=== PATIENT | female | born 1980 | race Caucasian/White ===

== ENCOUNTER 2021-01-22 19:09 | Inpatient (IN) | payer OTHER, SELFPAY ==
[2021-01-22 19:16] VITALS: BP 113/66; PULSE 108; RESP 18; TEMP 37.2; O2SAT 96; BMI 26.2
[2021-01-22 20:19] LABS: COVID-19 Test Negative (Negative)
[2021-01-22 20:45] LABS: MANUAL DIFF FLAG NO
[2021-01-22 20:48] LABS: Basophils Percent Auto 0.5 % (0-2); Eosinophils Absolute Auto 0.1 X10*3/uL (0.0-0.4); Eosinophils Percent Auto 1.3 % (0-4); Hematocrit 37.2 % (37.0-47.0); Hemoglobin 12.4 g/dl (12.0-16.0); Imm Gran Abs Auto 0.01 X10*3/uL (0.00-0.03); Imm Gran Pct Auto 0.2 % (0.0-0.4); Lymphocytes Absolute Auto 2.1 X10*3/uL (1.2-4.9); Lymphocytes Percent Auto 33.1 % (20-40); Mean Corpuscular HGB Conc 33.3 g/dl (31.0-35.0); Mean Corpuscular Hemoglobin 32.2 pg (27.0-33.0); Mean Corpuscular Volume 96.6 fL (80.0-98.0); Mean Platelet Volume 9.2 fL (9.4-12.3); Monocytes Absolute Auto 0.4 X10*3/uL (0.1-1.2); Monocytes Percent Auto 5.7 % (2-11); Neutrophils Absolute Auto 3.7 x10*3/uL (2.0-8.3); Neutrophils Percent Auto 59.2 % (45-73); Platelet Count 267 X10*3/uL (160-400); Red Blood Count 3.85 X10*6/uL (4.20-5.50); Red Cell Distribution Width 12.8 % (11.0-16.0); White Blood Count 6.3 X10*3/uL (4.8-10.8)
[2021-01-22 21:01] LABS: Anion Gap 12 (12-20); Blood Urea Nitrogen 19 mg/dL (9-16); Calcium 8.9 mg/dL (8.4-10.2); Carbon Dioxide 24 mmol/L (22-29); Chloride 108 mmol/L (96-108); Creatinine Clr Calc Pharmacy 74.7; Estimated Glomerular Filt Rate > 60; Glucose Random 95 mg/dL (60-115); Potassium 3.8 mmol/L (3.3-5.1); Sodium 140 mmol/L (135-145)
--- NOTE | 2021-01-22 22:01 | ED_ITS ---
HPI - Psych General Chief Complaint: Psychiatric Symptoms Stated Complaint: crisis Time Seen by Provider: 01/22/21 22:01 Source: RN notes reviewed Mode of arrival: EMS History of Present Illness HPI Narrative: patient comes from halfway and got into an argument. Patient made homicidal statements so [facility] sectioned her. According to halfway patient has been increasing agitation over the past few weeks. MD complaint: anxiety Onset (ago): hour(s) Duration: constant Related Data Home Medications Medication Instructions Recorded Confirmed citalopram 40 mg tablet 1 tab PO QAM 01/22/21 01/22/21 clonazepam 0.5 mg tablet 1 tab PO BID 01/22/21 01/22/21 medroxyprogesterone 5 mg tablet 1 tab PO DAILY 01/22/21 01/22/21 quetiapine 200 mg tablet,extended 200 mg PO BEDTIME 01/22/21 01/22/21 release 24 hr quetiapine 50 mg tablet 1 tab PO QAM 01/22/21 01/22/21 Allergies Allergy/AdvReac Type Severity Reaction Status Date / Time No Known Allergies Allergy Unverified 11/22/19 17:12 [No Known Allergies*] Review of Systems Review of Systems: Yes Unobtainable due to mental status and Other (patient appears developmentally delayed) Neurologic: Denies Sensory deficit (Neuro) [facility] Social History Social History Advance Directives: No Advance Directives Information Provided: No Patient : No Physical Exam Vital Signs: Vital Signs: Last Vital Signs Temp 98.9 F 01/22/21 19:16 Pulse 108 H 01/22/21 19:16 Resp 18 01/22/21 19:16 BP 113/66 01/22/21 19:16 Pulse Ox 96 01/22/21 19:16 Body Mass Index 26.2 Const: Other: Patient appears developmentally delayed, shy, anxious holding a stuffed animal Nutritional Appearance: average body habitus Orientation/consciousness: oriented to person Limitations: behavioral limitations HENMT: Head: Yes normal to inspection Ears: external ears normal General nose exam: Normal external nose present Mouth: Normal oral and palatal mucosa present and oropharynx normal Throat: Yes posterior oropharynx normal Eyes: General: appearance normal, both eyes and all related structures Neck: Other: supple Neck: Yes normal visual inspection Chest: Chest palpation & inspection: normal inspection of the chest Resp: Auscultation: clear to auscultation bilaterally Cardio: Jugular venous distension: no JVD Rate: regular rate Rhythm: regular rhythm Heart sounds: S1 normal heart sound present and S2 normal heart sound present GI: Inspection: Yes normal to inspection Palpation (GI): Soft to palpation, nontender and No hepatosplenomegaly present Auscultation: normal bowel sounds : General: Yes no CVA tenderness Back/Spine/Pelvis: Back: no CVA tenderness Skin: General skin exam: no rashes or lesions noted Neuro: General: oriented to person Cranial nerves: Yes CN's II-XII intact bilaterally Motor exam (neuro): 5/5 motor strength present throughout Sensory Exam: No Sensory deficit (Neuro) Extrem: General: Yes normal to inspection Psych: Appearance: grossly normal Course Reevaluation(s) Reevaluation #1: Crisis decided to admit Time: 22:55 [facility] - Psych Lab Data Result diagrams: 01/22/21 20:38 01/22/21 20:38 Labs: Lab Results 01/22/21 01/22/21 01/22/21 Range/Units 19:59 20:38 20:38 WBC 6.3 (4.8-10.8) X10*3/uL RBC 3.85 L (4.20-5.50) X10*6/uL Hgb 12.4 (12.0-16.0) g/dl Hct 37.2 (37.0-47.0) % MCV 96.6 (80.0-98.0) fL MCH 32.2 (27.0-33.0) pg MCHC 33.3 (31.0-35.0) g/dl RDW 12.8 (11.0-16.0) % Plt Count 267 (160-400) X10*3/uL MPV 9.2 L (9.4-12.3) fL Immature Gran % (Auto) 0.2 (0.0-0.4) % Neut % (Auto) 59.2 (45-73) % Lymph % (Auto) 33.1 (20-40) % [place] % (Auto) 5.7 (2-11) % Eos % (Auto) 1.3 (0-4) % Baso % (Auto) 0.5 (0-2) % Lymph # (Auto) 2.1 (1.2-4.9) X10*3/uL [place] # (Auto) 0.4 (0.1-1.2) X10*3/uL Eos # (Auto) 0.1 (0.0-0.4) X10*3/uL Baso # (Auto) 0.0 (0.0-0.2) X10*3/uL Abs Immat Gran (auto) 0.01 (0.00-0.03) X10*3/uL Absolute Neuts (auto) 3.7 (2.0-8.3) x10*3/uL Absolute Nucleated RBC 0.000 (0.0-0.012) X10*3/uL Nucleated RBC % (auto) 0.0 (0.0-0.2) /100WBC Sodium 140 (135-145) mmol/L Potassium 3.8 (3.3-5.1) mmol/L Chloride 108 (96-108) mmol/L Carbon Dioxide 24 (22-29) mmol/L Anion Gap 12 (12-20) BUN 19 H (9-16) mg/dL Creatinine 0.84 (0.5-1.4) mg/dL Estim Creat Clear Calc 74.7 Estimated GFR > 60 Random Glucose 95 (60-115) mg/dL Calcium 8.9 (8.4-10.2) mg/dL Urine Color Urine Appearance Urine pH (5.0-8.0) Ur Specific [place] (1.005-1.025) Urine Protein (NEG-TRACE) MG/DL Urine Glucose (UA) (NEG) MG/DL Urine Ketones (NEG) MG/DL Urine Blood (NEG) Urine Nitrite (NEG) Ur Leukocyte Esterase (NEG) Urine RBC (0) /HPF Urine WBC (0-4) /HPF Ur Squamous Epith Cells /LPF Urine Bacteria /LPF Urine Mucus /LPF Urine Test (NEGATIVE) Urine Opiates Screen (Not Detect) Urine Fentanyl Screen (Not Detect) Ur Barbiturates Screen (Not Detect) Ur Phencyclidine Scrn (Not Detect) Ur Amphetamines Screen (Not Detect) U Benzodiazepines Scrn (Not Detect) Urine Cocaine Screen (Not Detect) U Marijuana (THC) Screen (Not Detect) COVID-19 (JONATHAN) Negative (Negative) COVID-19 Clin Com See Note 01/22/21 01/22/2121 Range/Units 22:01 22:01 22:01 WBC (4.8-10.8) X10*3/uL RBC (4.20-5.50) X10*6/uL Hgb (12.0-16.0) g/dl Hct (37.0-47.0) % MCV (80.0-98.0) fL MCH (27.0-33.0) pg MCHC (31.0-35.0) g/dl RDW (11.0-16.0) % Plt Count (160-400) X10*3/uL MPV (9.4-12.3) fL Immature Gran % (Auto) (0.0-0.4) % Neut % (Auto) (45-73) % Lymph % (Auto) (20-40) % [place] % (Auto) (2-11) % Eos % (Auto) (0-4) % Baso % (Auto) (0-2) % Lymph # (Auto) (1.2-4.9) X10*3/uL [place] # (Auto) (0.1-1.2) X10*3/uL Eos # (Auto) (0.0-0.4) X10*3/uL Baso # (Auto) (0.0-0.2) X10*3/uL Abs Immat Gran (auto) (0.00-0.03) X10*3/uL Absolute Neuts (auto) (2.0-8.3) x10*3/uL Absolute Nucleated RBC (0.0-0.012) X10*3/uL Nucleated RBC % (auto) (0.0-0.2) /100WBC Sodium (135-145) mmol/L Potassium (3.3-5.1) mmol/L Chloride (96-108) mmol/L Carbon Dioxide (22-29) mmol/L Anion Gap (12-20) BUN (9-16) mg/dL Creatinine (0.5-1.4) mg/dL Estim Creat Clear Calc Estimated GFR Random Glucose (60-115) mg/dL Calcium (8.4-10.2) mg/dL Urine Color YELLOW Urine Appearance CLEAR Urine pH 6.0 (5.0-8.0) Ur Specific [place] >= 1.030 H (1.005-1.025) Urine Protein TRACE (NEG-TRACE) MG/DL Urine Glucose (UA) NEG (NEG) MG/DL Urine Ketones 5 (NEG) MG/DL Urine Blood TRACE (NEG) Urine Nitrite NEG (NEG) Ur Leukocyte Esterase TRACE H (NEG) Urine RBC 0-2 (0) /HPF Urine WBC 1-4 (0-4) /HPF Ur Squamous Epith Cells 3+ /LPF Urine Bacteria TRACE /LPF Urine Mucus 3+ /LPF Urine Test NEGATIVE (NEGATIVE) Urine Opiates Screen Not Detected (Not Detect) Urine Fentanyl Screen Not Detected (Not Detect) Ur Barbiturates Screen Not Detected (Not Detect) Ur Phencyclidine Scrn Not Detected (Not Detect) Ur Amphetamines Screen Not Detected (Not Detect) U Benzodiazepines Scrn POSITIVE H (Not Detect) Urine Cocaine Screen Not Detected (Not Detect) U Marijuana (THC) Screen Not Detected (Not Detect) COVID-19 (JONATHAN) (Negative) COVID-19 Clin Com Discharge Plan Discharge Clinical Impression: Acute anxiety, Agitation Patient Disposition: Admitted As Inpatient
[2021-01-22 22:11] LABS: Appearance Urine CLEAR; Color Urine YELLOW; Glucose Urine UA NEG (NEG); Leukocyte Esterase Urine TRACE (NEG); Nitrite Urine NEG (NEG); Specific Gravity - Urine >= 1.030 (1.005-1.025); UACC Culture Trigger YES; Urine Blood TRACE (NEG); Urine Ketones 5 MG/DL (NEG); Urine Protein TRACE MG/DL (NEG-TRACE)
[2021-01-22 22:12] LABS: UPreg QC Valid YES; Urine Pregnancy NEGATIVE (NEGATIVE)
[2021-01-22 22:17] LABS: RBC Urine 0-2 /HPF (0); Squamous Epithelial Cell Urine 3+ /LPF; UACC CULT YES
[2021-01-22 22:18] LABS: Bacteria Urine TRACE /LPF; Mucus Urine 3+ /LPF
[2021-01-22 22:23] LABS: Amphetamine Screen Urine Not Detected (Not Detect); Barbiturates, Urine Not Detected (Not Detect); Benzodiazepines Screen Urine POSITIVE (Not Detect); Cannabinoid Screen Urine Not Detected (Not Detect); Cocaine Screen Urine Not Detected (Not Detect); Fentanyl, urine Not Detected (Not Detect); Opiate Screen Urine Not Detected (Not Detect); Phencyclidine Screen Urine Not Detected (Not Detect)
--- NOTE | 2021-01-23 01:23 | PC.NURSE ---
Patient is currently appears sleeping, no distress observed/reported, patient mother who is her guardian just left, patient disposition is section 12 inpatient bed search, pre accepted to [facility] unable to transfer patient due to admit order issue, VSS, will continue to monitor.
--- NOTE | 2021-01-23 06:22 | PC.NURSE ---
Patient slept through the night, no distress observed/reported, behavior quiet at this time but can escalate, patient appears cognitively delayed, med rec completed/pending provider's approval, patient was evaluated by [facility] in the community with disposition section 12 inpatient bed search, patient is pre-accepted to , VSS, will continue to monitor.
--- NOTE | 2021-01-23 07:16 | PC.NURSE ---
patient appears to remain at rest at present, respirations are even and unlabored, patient appears in no distress
--- NOTE | 2021-01-23 08:11 | PC.NURSE ---
patient has mail carriers supervisor from [facility] kristie miner [phone] wanted her number documented from residential program
[2021-01-23] MEDS: QUEtiapine Fumarate 50 MG TABLET PO (09:41)
[2021-01-23] MEDS: clonazePAM 0.5 MG TABLET PO ×2 (09:41→21:19)
[2021-01-23] MEDS: Escitalopram Oxalate 20 MG TABLET PO (09:41)
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
[2021-01-23 18:00] VITALS: BP 104/62; PULSE 80; TEMP 36.6; O2SAT 99
[2021-01-23] MEDS: QUEtiapine Fumarate 200 MG TABLET PO (21:19)
[2021-01-24 09:00] VITALS: BP 104/65; PULSE 80
[2021-01-24] MEDS: Escitalopram Oxalate 20 MG TABLET PO (09:06)
[2021-01-24] MEDS: QUEtiapine Fumarate 100 MG TABLET PO (09:06)
[2021-01-24] MEDS: medroxyPROGESTERone Acetate 5 MG TABLET PO (09:06)
[2021-01-24] MEDS: clonazePAM 0.5 MG TABLET PO ×2 (09:06→21:08)
--- NOTE | 2021-01-24 10:32 | P.PNPSI_ITS ---
Subjective Subjective Date of Service: 01/24/21 Reason For Visit: Depression with psychotic features Interim History: Patient lying in bed, awake but with covers pulled mostly over her head. She was difficult to engage and said that she was tired. Cloth Painter asked if she was sad and she said not really however later patient said she missed her mom and her brother. Cloth Painter also asked if the Seroquel dose was too high in the morning to which she did not answer. Patient was incontinent of urine this morning. Nursing staff helped patient to take a shower of which she seem to need help. Otherwise she has been mostly isolative in her room Patient's UA came back with some but minimal concern for UTI. However patient was incontinent of urine this morning. Patient is a limited historian and could not answer questions about dysuria/frequency. It given her incontinence and the fact that she has recently had a mood change, racebook writer discussed the case with hospitalist who recommended starting Ceftin 250 mg b.i.d. for 5 days, to get another clean-catch and if negative cultures to discontinue. Mental Status Exam Mental Status Exam Narrative: Pt is alert and oriented; behavior is minimally cooperative; patient is not in distress; dressed in hospital gown with unkempt hair but improved hygiene; mood is described as not really [sad] ? affect a little constricted; no eye contact; Speech is with limited articulation which is likely her baseline despite which she is able to express herself adequately; speech not pressured; psychomotor retardation present; thought process is tangential but can be goal directed at times;. Thought content is on various tangents; there does not ap pear to be any delusional content, paranoid ideations or grandiosity; denies SI/ HI;? There is no clear evidence of perceptual disturbance.? Patients insight and judgment are impaired at baseline. Diagnostics Vital Signs (24Hr): Vital Signs - 24 hr 01/23/21 18:00 Temperature 97.8 F Pulse Rate 80 Blood Pressure 104/62 Pulse Oximetry 99 Body Mass Index 26.2 Labs Results: 01/22/21 20:38 01/22/21 20:38 Labs: Laboratory Results - last 48 hr 01/22/21 01/22/21 01/22/21 19:59 20:38 20:38 WBC 6.3 RBC 3.85 L Hgb 12.4 Hct 37.2 MCV 96.6 MCH 32.2 MCHC 33.3 RDW 12.8 Plt Count 267 MPV 9.2 L Immature Gran % (Auto) 0.2 Neut % (Auto) 59.2 Lymph % (Auto) 33.1 Polk % (Auto) 5.7 Eos % (Auto) 1.3 Baso % (Auto) 0.5 Lymph # (Auto) 2.1 Polk # (Auto) 0.4 Eos # (Auto) 0.1 Baso # (Auto) 0.0 Abs Immat Gran (auto) 0.01 Absolute Neuts (auto) 3.7 Absolute Nucleated RBC 0.000 Nucleated RBC % (auto) 0.0 Sodium 140 Potassium 3.8 Chloride 108 Carbon Dioxide 24 Anion Gap 12 BUN 19 H Creatinine 0.84 Estim Creat Clear Calc 74.7 Estimated GFR > 60 Random Glucose 95 Calcium 8.9 Urine Color Urine Appearance Urine pH Ur Specific Kite Urine Protein Urine Glucose (UA) Urine Ketones Urine Blood Urine Nitrite Ur Leukocyte Esterase Urine RBC Urine WBC Ur Squamous Epith Cells Urine Bacteria Urine Mucus Urine Test Urine Opiates Screen Urine Fentanyl Screen Ur Barbiturates Screen Ur Phencyclidine Scrn Ur Amphetamines Screen U Benzodiazepines Scrn Urine Cocaine Screen U Marijuana (THC) Screen COVID-19 (JONATHAN) Negative COVID-19 Clin Com See Note 01/22/21 01/22/21 01/22/21 22:01 22:01 22:01 WBC RBC Hgb Hct MCV MCH MCHC RDW Plt Count MPV Immature Gran % (Auto) Neut % (Auto) Lymph % (Auto) Polk % (Auto) Eos % (Auto) Baso % (Auto) Lymph # (Auto) Polk # (Auto) Eos # (Auto) Baso # (Auto) Abs Immat Gran (auto) Absolute Neuts (auto) Absolute Nucleated RBC Nucleated RBC % (auto) Sodium Potassium Chloride Carbon Dioxide Anion Gap BUN Creatinine Estim Creat Clear Calc Estimated GFR Random Glucose Calcium Urine Color YELLOW Urine Appearance CLEAR Urine pH 6.0 Ur Specific Kite >= 1.030 H Urine Protein TRACE Urine Glucose (UA) NEG Urine Ketones 5 Urine Blood TRACE Urine Nitrite NEG Ur Leukocyte Esterase TRACE H Urine RBC 0-2 Urine WBC 1-4 Ur Squamous Epith Cells 3+ Urine Bacteria TRACE Urine Mucus 3+ Urine Test NEGATIVE Urine Opiates Screen Not Detected Urine Fentanyl Screen Not Detected Ur Barbiturates Screen Not Detected Ur Phencyclidine Scrn Not Detected Ur Amphetamines Screen Not Detected U Benzodiazepines Scrn POSITIVE H Urine Cocaine Screen Not Detected U Marijuana (THC) Screen Not Detected COVID-19 (JONATHAN) COVID-19 Clin Com Medications Medications Current Medications Acetaminophen (Acetaminophen 325 Mg Tablet) 650 mg PO Q6H PRN PRN Reason: Headache/Pain Mild Scale (1-3) Al Hydroxide/Mg Hydroxide (Magnesium Hydrox/Alum Hydrox 30 Ml Oral.Susp) 30 ml PO Q6H PRN PRN Reason: Heartburn/Nausea Clonazepam (Clonazepam 0.5 Mg Tablet) 0.5 mg PO BID [facility] Last Admin: 01/24/21 09:06 Dose: 0.5 mg Documented by: Escitalopram Oxalate (Escitalopram Oxalate 20 Mg Tablet) 20 mg PO DAILY [facility] Last Admin: 01/24/21 09:06 Dose: 20 mg Documented by: Hydroxyzine HCl (Hydroxyzine Hcl 25 Mg Tablet) 25 mg PO BEDTIME PRN PRN Reason: Anxiety Magnesium Hydroxide (Milk Of Magnesia 30 Ml Oral.Susp) 30 ml PO DAILY PRN PRN Reason: Constipation Medroxyprogesterone Acetate (Medroxyprogesterone Acetate 5 Mg Tablet) 5 mg PO DAILY [facility] Last Admin: 01/24/21 09:06 Dose: 5 mg Documented by: Quetiapine Fumarate (Quetiapine Fumarate 200 Mg Tablet) 200 mg PO BEDTIME [facility] Last Admin: 01/23/21 21:19 Dose: 200 mg Documented by: Quetiapine Fumarate (Quetiapine Fumarate 100 Mg Tablet) 100 mg PO DAILY [facility] Last Admin: 01/24/21 09:06 Dose: 100 mg Documented by: Trazodone HCl (Trazodone Hcl 50 Mg Tablet) 50 mg PO BEDTIME PRN PRN Reason: Insomnia Allergies Allergies Allergy/AdvReac Type Severity Reaction Status Date / Time No Known Allergies Allergy Unverified 11/22/19 17:12 [No Known Allergies*] Assessment & Plan Assessment & Plan (1) Intellectual delay: Status: Chronic Code(s): F81.9 - Developmental disorder of scholastic skills, unspecified (2) Adjustment disorder with mixed disturbance of emotions and conduct: Status: Acute Code(s): F43.25 - Adjustment disorder with mixed disturbance of emotions and conduct Assessment and Plan: Patient is a 40-year-old female, developmentally delayed. She presents from [facility] skilled nursing for increased agitation and hostility towards other house mate which crisis no reports has been ramping up for a few weeks. Patient is poor historian and unable to give much information. At 1st she is cautious on approach but warms up and is friendly and talkative. Thoughts are tangential which is likely baseline; she can be goal directed. She is oriented to self and mostly situation. She knows she takes medications and is resolved to continue doing so. She says she was angry at peer in her household however shares that her mother is helping her understand that this person mind is sick. Crisis note reports there has been a recent medication change, however no other specific trigger. Reportedly she has been physically aggressive, tried scratching herself, threatened to hit the director of business applications and been crying a lot lately. She has not been attending to ADLs. It is unclear from report whether she has a history of auditory hallucinations or only recently reported auditory hallucinations. -it is unclear if change in behavior was prior to med changes or subsequent to and racebook writer will need collateral; there seems to be a particular peer that patient is having trouble with mother, Taylor is guardian: [phone] [facility] ice platform supervisor Mayra: [phone] Patient's UA came back with some but minimal concern for UTI. However patient was incontinent of urine this morning. Patient is a limited historian and could not answer questions about dysuria/frequency. It given her incontinence and the fact that she has recently had a mood change, racebook writer discussed the case with hospitalist who recommended starting Ceftin 250 mg b.i.d. for 5 days, to get another clean-catch and if negative cultures to discontinue. DX: Adjustment disorder with mixed disturbance of emotions and conduct Intellectual disability PLAN: Patient on Section 12; -on admission patient signed CV however it was unclear patient could un derstand full criteria for CV -Patient was a little flustered and guarded trying to get oriented to talking with provider and being on the unit and as she calms down, this topic can be revisited START on Ceftin 250mg BID for 5 days for UTI will order clean catch (which is difficult for patient) and dc if neg cultures Abbreviated home medications (Formulary does not have exact patient's medication s) Lexapro 20 mg (substituting for Celexa 40 mg) Seroquel: -CHANGE to Seroquel IR 50 mg in the morning and 50mg in afternoon since pt seemed overly tired today (patient takes Seroquel ER 50 mg q.a.m. + Seroquel IR 50 mg q.a.m; pharmacy confirmed w/ Dr. Sterling) -Seroquel IR 200 mg at bedtime (patient takes Seroquel ER 200 mg at bedtime; racebook writer discussed with pharmacist who both agree it is difficult to say patient would be adequately covered if convert this ER dosing to to IR which would be 100 mg b.i.d. Will gather collateral I spent minutes with the patient and/or on the patient floor today, greater than?50% of which was spent counseling/coordinating care. Reason for contiued inpatient stay Substantial Risk for: med/psych decompensation
[2021-01-24] MEDS: QUEtiapine Fumarate 200 MG TABLET PO (21:08)
[2021-01-25] MEDS: QUEtiapine Fumarate 50 MG TABLET PO ×2 (09:57→13:11)
[2021-01-25] MEDS: clonazePAM 0.5 MG TABLET PO ×2 (09:57→20:52)
[2021-01-25] MEDS: Escitalopram Oxalate 20 MG TABLET PO (09:57)
[2021-01-25] MEDS: medroxyPROGESTERone Acetate 5 MG TABLET PO (09:57)
[2021-01-25 13:17] VITALS: BP 112/65; PULSE 91; RESP 16; O2SAT 95
[2021-01-25 17:31] VITALS: BP 132/79; PULSE 78; RESP 16; TEMP 36.4; O2SAT 98
[2021-01-25] MEDS: QUEtiapine Fumarate 200 MG TABLET PO (20:52)
--- NOTE | 2021-01-25 21:29 | P.PNPSI_ITS ---
Subjective Subjective Date of Service: 01/25/21 Reason For Visit: Depression with psychotic features Interim History: pt in good behavioral and impulse control understands may have UTI and taking medication for it; she refuses to have a repeat UA. she denies any SI. Pt explains that at her prison she was angry at Yusuf Carrington since he is always in the way but is trying to understand that his mind is sick. Mental Status Exam Mental Status Exam Narrative: Pt is alert and oriented; behavior is cooperative; patient is not in distress; dressed in pink nightgown; clean, combed hair; mood is described as good ? affect congruent; minimal eye contact; Speech is with limited articula tion which is likely her baseline despite which she is able to express herself adequately; speech not pressured; no psychomotor retardation present; thought process is tangential but can be goal directed at times;. Thought content is on various tangents; there does not appear to be any delusional content, paranoid ideations or grandiosity; denies SI/ HI;? There is no clear evidence of perceptual disturbance.? Patients insight and judgment are impaired at baseline. Diagnostics Vital Signs (24Hr): Vital Signs - 24 hr 01/25/21 13:17 01/25/21 17:31 Temperature 97.6 F Pulse Rate 91 78 Respiratory Rate 16 16 Blood Pressure 112/65 132/79 Pulse Oximetry 95 98 Body Mass Index 26.2 Labs Results: 01/22/21 20:38 01/22/21 20:38 Medications Medications Current Medications Acetaminophen (Acetaminophen 325 Mg Tablet) 650 mg PO Q6H PRN PRN Reason: Headache/Pain Mild Scale (1-3) Al Hydroxide/Mg Hydroxide (Magnesium Hydrox/Alum Hydrox 30 Ml Oral.Susp) 30 ml PO Q6H PRN PRN Reason: Heartburn/Nausea Cefuroxime Axetil (Cefuroxime Axetil 250 Mg Tablet) 250 mg PO BID [facility] Stop: 01/28/21 23:59 Last Admin: 01/25/21 20:52 Dose: 250 mg Documented by: Clonazepam (Clonazepam 0.5 Mg Tablet) 0.5 mg PO BID [facility] Last Admin: 01/25/21 20:52 Dose: 0.5 mg Documented by: Escitalopram Oxalate (Escitalopram Oxalate 20 Mg Tablet) 20 mg PO DAILY [facility] Last Admin: 01/25/21 09:57 Dose: 20 mg Documented by: Hydroxyzine HCl (Hydroxyzine Hcl 25 Mg Tablet) 25 mg PO BEDTIME PRN PRN Reason: Anxiety Magnesium Hydroxide (Milk Of Magnesia 30 Ml Oral.Susp) 30 ml PO DAILY PRN PRN Reason: Constipation Medroxyprogesterone Acetate (Medroxyprogesterone Acetate 5 Mg Tablet) 5 mg PO DAILY [facility] Last Admin: 01/25/21 09:57 Dose: 5 mg Documented by: Multi-Ingred Cream/Lotion/Oil/Oint (Mineral Oil/Petrolatum,White 106 Gm Tube) 1 appl TOPICAL BID [facility]; Protocol Last Admin: 01/25/21 20:58 Dose: Not Given Documented by: Quetiapine Fumarate (Quetiapine Fumarate 200 Mg Tablet) 200 mg PO BEDTIME [facility] Last Admin: 01/25/21 20:52 Dose: 200 mg Documented by: Quetiapine Fumarate (Quetiapine Fumarate 50 Mg Tablet) 50 mg PO BID@0830,1330 [facility] Last Admin: 01/25/21 13:11 Dose: 50 mg Documented by: Trazodone HCl (Trazodone Hcl 50 Mg Tablet) 50 mg PO BEDTIME PRN PRN Reason: Insomnia Allergies Allergies Allergy/AdvReac Type Severity Reaction Status Date / Time No Known Allergies Allergy Unverified 11/22/19 17:12 [No Known Allergies*] Assessment & Plan Assessment & Plan (1) Intellectual delay: Status: Chronic Code(s): F81.9 - Developmental disorder of scholastic skills, unspecified (2) Adjustment disorder with mixed disturbance of emotions and conduct: Status: Acute Code(s): F43.25 - Adjustment disorder with mixed disturbance of emotions and conduct Assessment and Plan: Patient is a 40-year-old female, developmentally delayed. She presents from [facility] prison for increased agitation and hostility towards other house mate which crisis no reports has been ramping up for a few weeks. Patient is poor historian and unable to give much information. At 1st she is cautious on approach but warms up and is friendly and talkative. Thoughts are tangential which is likely baseline; she can be goal directed. She is oriented to self and mostly situation. She knows she takes medications and is resolved to continue doing so. She says she was angry at peer in her household however shares that her mother is helping her understand that this person mind is sick. Crisis note reports there has been a recent medication change, however no other specific trigger. Reportedly she has been physically aggressive, tried scratching herself, threatened to hit the financial business analyst and been crying a lot lately. She has not been attending to ADLs. It is unclear from report whether she has a history of auditory hallucinations or only recently reported auditory hallucinations. -it is unclear if change in behavior was prior to med changes or subsequent to and travel writer will need collateral; there seems to be a particular peer that patient is having trouble with mother, Taylor is guardian: [phone] [facility] lawn and tree service spray supervisor Mayra: [phone] Patient's UA came back with some but minimal concern for UTI. However patient was incontinent of urine this morning. Patient is a limited historian and could not answer questions about dysuria/frequency. It given her incontinence and the fact that she has recently had a mood change, travel writer discussed the case with hospitalist who recommended starting Ceftin 250 mg b.i.d. for 5 days, to get another clean-catch and if negative cultures to discontinue. DX: Adjustment disorder with mixed disturbance of emotions and conduct Intellectual disability PLAN: Patient on Section 12; -on admission patient signed CV however it was unclear patient could understand full criteria for CV -Patient was a little flustered and guarded trying to get oriented to talking with provider and being on the unit and as she calms down, this topic can be revisited START on Ceftin 250mg BID for 5 days for UTI will order clean catch (which is difficult for patient) and dc if neg cultures Abbreviated home medications (Formulary does not have exact patient's medications) Lexapro 20 mg (substituting for Celexa 40 mg) Seroquel: -CHANGE to Seroquel IR 50 mg in the morning and 50mg in afternoon since pt seemed overly tired today (patient takes Seroquel ER 50 mg q.a.m. + Seroquel IR 50 mg q.a.m; pharmacy confirmed w/ Dr. Sterling) -Seroquel IR 200 mg at bedtime (patient takes Seroquel ER 200 mg at bedtime; travel writer discussed with pharmacist who both agree it is difficult to say patient would be adequately covered if convert this ER dosing to to IR which would be 100 mg b.i.d. Will gather collateral I spent minutes with the patient and/or on the patient floor today, greater than?50% of which was spent counseling/coordinating care. Reason for contiued inpatient stay Substantial Risk for: med/psych decompensation
[2021-01-26 06:00] VITALS: BP 113/58; PULSE 87; RESP 18; TEMP 36.9; O2SAT 96
[2021-01-26] MEDS: medroxyPROGESTERone Acetate 5 MG TABLET PO (08:39)
[2021-01-26] MEDS: QUEtiapine Fumarate 50 MG TABLET PO ×2 (08:39→13:09)
[2021-01-26] MEDS: Escitalopram Oxalate 20 MG TABLET PO (08:40)
[2021-01-26] MEDS: clonazePAM 0.5 MG TABLET PO ×2 (08:40→20:42)
--- NOTE | 2021-01-26 14:54 | HO.PSYCHPN ---
Subjective Subjective Date of Service: 01/26/21 Reason For Visit: Depression with psychotic features Interim History: pt sitting on bed she says she's alright and hanging in there. She says she like to go back home whenever her family thinks she's ready. To other questions, pt frequently responds on an unrelated topic, such as how are you sleeping? with my mom visits me... No behavioral issues; she remains in good impulse and behavioral control no complaints; no requests Patient showered with staff assist Mental Status Exam Mental Status Exam Narrative: Pt is alert and oriented; behavior is cooperative, friendly and calm; patient is not in distress; dressed in pink nightgown top; clean, combed hair; mood is described as alright affect congruent; on/off eye contact; Speech is with limited articulation which is likely her baseline but despite this, she is able to express herself adequately; speech not pressured; no psychomotor retardation present; thought process is tangential but can be goal directed at times;. Thought content is on various tangents; there does not appear to be any delusional content, paranoid ideations or grandiosity; denies SI/ HI;? There is no clear evidence of perceptual disturbance.? Patients insight and judgment are impaired at baseline. Diagnostics Vital Signs (24Hr): Vital Signs - 24 hr 01/25/21 17:31 01/26/21 06:00 Temperature 97.6 F 98.5 F Pulse Rate 78 87 Respiratory Rate 16 18 Blood Pressure 132/79 113/58 L Pulse Oximetry 98 96 Body Mass Index 26.2 Labs Results: 01/22/21 20:38 01/22/21 20:38 Medications Medications Current Medications Acetaminophen (Acetaminophen 325 Mg Tablet) 650 mg PO Q6H PRN PRN Reason: Headache/Pain Mild Scale (1-3) Al Hydroxide/Mg Hydroxide (Magnesium Hydrox/Alum Hydrox 30 Ml Oral.Susp) 30 ml PO Q6H PRN PRN Reason: Heartburn/Nausea Cefuroxime Axetil (Cefuroxime Axetil 250 Mg Tablet) 250 mg PO BID [facility] Stop: 01/28/21 23:59 Last Admin: 01/26/21 08:40 Dose: 250 mg Documented by: Clonazepam (Clonazepam 0.5 Mg Tablet) 0.5 mg PO BID [facility] Last Admin: 01/26/21 08:40 Dose: 0.5 mg Documented by: Escitalopram Oxalate (Escitalopram Oxalate 20 Mg Tablet) 20 mg PO DAILY [facility] Last Admin: 01/26/21 08:40 Dose: 20 mg Documented by: Hydroxyzine HCl (Hydroxyzine Hcl 25 Mg Tablet) 25 mg PO BEDTIME PRN PRN Reason: Anxiety Magnesium Hydroxide (Milk Of Magnesia 30 Ml Oral.Susp) 30 ml PO DAILY PRN PRN Reason: Constipation Medroxyprogesterone Acetate (Medroxyprogesterone Acetate 5 Mg Tablet) 5 mg PO DAILY [facility] Last Admin: 01/26/21 08:39 Dose: 5 mg Documented by: Multi-Ingred Cream/Lotion/Oil/Oint (Mineral Oil/Petrolatum,White 106 Gm Tube) 1 appl TOPICAL BID [facility]; Protocol Last Admin: 01/26/21 09:00 Dose: Not Given Documented by: Quetiapine Fumarate (Quetiapine Fumarate 200 Mg Tablet) 200 mg PO BEDTIME [facility] Last Admin: 01/25/21 20:52 Dose: 200 mg Documented by: Quetiapine Fumarate (Quetiapine Fumarate 50 Mg Tablet) 50 mg PO BID@0830,1330 [facility] Last Admin: 01/26/21 13:09 Dose: 50 mg Documented by: Trazodone HCl (Trazodone Hcl 50 Mg Tablet) 50 mg PO BEDTIME PRN PRN Reason: Insomnia Allergies Allergies Allergy/AdvReac Type Severity Reaction Status Date / Time No Known Allergies Allergy Unverified 11/22/19 17:12 [No Known Allergies*] Assessment & Plan Assessment & Plan (1) Intellectual delay: Status: Chronic Code(s): F81.9 - Developmental disorder of scholastic skills, unspecified (2) Adjustment disorder with mixed disturbance of emotions and conduct: Status: Acute Code(s): F43.25 - Adjustment disorder with mixed disturbance of emotions and conduct Assessment and Plan: Patient is a 40-year-old female, developmentally delayed. She presents from [facility] for increased agitation and hostility towards other house mate which crisis no reports has been ramping up for a few weeks. Patient is poor historian and unable to give much information. At 1st she is cautious on approach but warms up and is friendly and talkative. Thoughts are tangential which is likely baseline; she can be goal directed. She is oriented to self and mostly situation. She knows she takes medications and is resolved to continue doing so. She says she was angry at peer in her household however shares that her mother is helping her understand that this person mind is sick. Crisis note reports there has been a recent medication change, however no other specific trigger. Reportedly she has been physically aggressive, tried scratching herself, threatened to hit the business services vice president and been crying a lot lately. She has not been attending to ADLs. It is unclear from report whether she has a history of auditory hallucinations or only recently reported auditory hallucinations. -it is unclear if change in behavior was prior to med changes or subsequent to and physician underwriter will need collateral; there seems to be a particular peer that patient is having trouble with Hospital course: No medication changes made except for converting extended release to immediate release Seroquel Patient has remained calm and in good behavioral and impulse control on the unit. Patient is attending to ADLs on the unit with staff help which is baseline. Patient has not exhibited any behaviors that are dangerous to herself or others and has overall been interacting with staff and peers in a calm manner. Chemical Packager talked with Mayra machine shop supervisor at patient's penitentiary and discussed some of patient's history, that her behaviors have gotten worse over the past few months with aggression directed towards a specific peer and towards various staff. It is unclear the trigger and it is unclear the medication changes that have been made. Chemical Packager shared that on the unit patient's behaviors have been good and she has demonstrated good impulse control and that it is difficult to know what to treat in certainly work on a medication changes to make. Chemical Packager also expressed that if there were to be any medication changes to be made on the unit, there is no way to know if the changes are effective since her behaviors on the unit are fine to begin with. Rather physician underwriter shared that it seems medication changes will need to be made while she is at the house, in the environment that seems to be triggering in order to see what changes are effective. Mayra agreed and understood this perspective; she shared that the current prescriber has been difficult to coordinate with and has not made many changes and that they are in the process of getting any prescriber whom she hopes will be able to be more involved. Chemical Packager also spoke with patient's mother who had a similar report that patient's behaviors have changed. At this time, the etiology for patient's worsening behaviors remains unclear and it is likely a combination of situational stressors that occur at her household and medication management. Chemical Packager cannot say that patient is in imminent risk of harm to self or others as her behaviors have been calm and appropriate. While it is possible to make some medication changes physician underwriter cannot testify that patient needs to be on a locked unit at this time and she does not meet criteria for involuntary commitment. Furthermore, it is physician underwriter's opinion that medication management will be most effective when done in real-time while patient is dealing with whatever triggers exist in her penitentiary. Chemical Packager discussed this case with social service manager who agrees. Patient is currently on a 12 B. Team will continue to discuss case with staff at her penitentiary but it is likely that patient will be discharged back to her penitentiary. Contacts: motherTaylor is guardian: [phone] [facility] machine shop supervisor Mayra: [phone] UTI? -Patient's UA came back with some but minimal concern for UTI. However patient was incontinent of urine this morning. Patient is a limited historian and could not answer questions about dysuria/frequency. It given her incontinence and the fact that she has recently had a mood change, physician underwriter discussed the case with hospitalist who recommended starting Ceftin 250 mg b.i.d. for 5 days, to get another clean-catch and if negative cultures to discontinue. DX: Adjustment disorder with mixed disturbance of emotions and conduct Intellectual disability PLAN: Patient on Section 12; -on admission patient signed CV however it was unclear patient could understand full criteria for CV -Patient was a little flustered and guarded trying to get oriented to talking with provider and being on the unit and as she calms down, this topic can be revisited START on Ceftin 250mg BID for 5 days for UTI (pt refuses repeat UA) Abbreviated home medications (Formulary does not have exact patient's medications) Lexapro 20 mg (substituting for Celexa 40 mg) Seroquel: -CHANGE to Seroquel IR 50 mg in the morning and 50mg in afternoon since pt seemed overly tired today (patient takes Seroquel ER 50 mg q.a.m. + Seroquel IR 50 mg q.a.m; pharmacy confirmed w/ Dr. Sterling) -Seroquel IR 200 mg at bedtime (patient takes Seroquel ER 200 mg at bedtime; physician underwriter discussed with pharmacist who both agree it is difficult to say patient would be adequately covered if convert this ER dosing to to IR which would be 100 mg b.i.d. Will gather collateral; physician underwriter has left messages for mom/guardian I spent minutes with the patient and/or on the patient floor today, greater than?50% of which was spent counseling/coordinating care. Reason for contiued inpatient stay Substantial Risk for: stable for discharge
[2021-01-26] MEDS: QUEtiapine Fumarate 200 MG TABLET PO (20:42)
[2021-01-27] MEDS: medroxyPROGESTERone Acetate 5 MG TABLET PO (08:19)
[2021-01-27] MEDS: QUEtiapine Fumarate 50 MG TABLET PO ×2 (08:19→13:20)
[2021-01-27] MEDS: Escitalopram Oxalate 20 MG TABLET PO (08:20)
[2021-01-27] MEDS: clonazePAM 0.5 MG TABLET PO ×2 (08:20→20:56)
--- NOTE | 2021-01-27 15:08 | P.PNPSI_ITS ---
Subjective Subjective Date of Service: 01/27/21 Reason For Visit: Depression with psychotic features Interim History: Patient showered and with clean hair. Patient says she has all right she told entry writer that she had an accident (referring to incontinence); she then she told entry writer that she got treats for her ozzie bear, explaining she took Malcom crackers from the kitchen and placed them in front of her stuffed animal to which she thought was pretty funny. National Park Tour Guide asked patient about her new room (she moved rooms last night) and patient expressed frustration that her roommate was lazy and just sleeps in bed all day. Patient had some concerns that she was going to be locked in her new room to which entry writer reassured her that no one was going in a locker in there at all. Patient remained calm and with appropriate behaviors on the unit, out of her room and in the milieu. Patient can answer some direct questions with appropriate concrete answers but still often gives irrelevant answers to inquiries. Staff reports that overnight patient got upset with her roommate but was redirectable. Patient went to sleep in a new room. [facility] meeting today reviewing patients history and medication trials. Mental Status Exam Mental Status Exam Narrative: Pt is alert and oriented; behavior is cooperative, friendly and calm; patient is not in distress; dressed in casual cloths with clean, combed hair; mood is described as alright affect congruent; on/off eye contact; Speech is with limited articulation which is likely her baseline but despite this, she is able to express herself adequately; speech not pressured; no psychomotor retardation present; thought process is tangential but can be goal directed at times;. Thought content is on various tangents; there does not appear to be any delusional content, paranoid ideations or grandiosity; denies SI/ HI;? There is no clear evidence of perceptual disturbance.? Patients insight and judgment are impaired at baseline. Diagnostics Vital Signs (24Hr): Body Mass Index 26.2 Labs Results: 01/22/21 20:38 01/22/21 20:38 Medications Medications Current Medications Acetaminophen (Acetaminophen 325 Mg Tablet) 650 mg PO Q6H PRN PRN Reason: Headache/Pain Mild Scale (1-3) Al Hydroxide/Mg Hydroxide (Magnesium Hydrox/Alum Hydrox 30 Ml Oral.Susp) 30 ml PO Q6H PRN PRN Reason: Heartburn/Nausea Cefuroxime Axetil (Cefuroxime Axetil 250 Mg Tablet) 250 mg PO BID [facility] Stop: 01/28/21 23:59 Last Admin: 01/27/21 08:19 Dose: 250 mg Documented by: Clonazepam (Clonazepam 0.5 Mg Tablet) 0.5 mg PO BID [facility] Last Admin: 01/27/21 08:20 Dose: 0.5 mg Documented by: Escitalopram Oxalate (Escitalopram Oxalate 20 Mg Tablet) 20 mg PO DAILY [facility] Last Admin: 01/27/21 08:20 Dose: 20 mg Documented by: Hydroxyzine HCl (Hydroxyzine Hcl 25 Mg Tablet) 25 mg PO BEDTIME PRN PRN Reason: Anxiety Magnesium Hydroxide (Milk Of Magnesia 30 Ml Oral.Susp) 30 ml PO DAILY PRN PRN Reason: Constipation Medroxyprogesterone Acetate (Medroxyprogesterone Acetate 5 Mg Tablet) 5 mg PO DAILY [facility] Last Admin: 01/27/21 08:19 Dose: 5 mg Documented by: Multi-Ingred Cream/Lotion/Oil/Oint (Mineral Oil/Petrolatum,White 106 Gm Tube) 1 appl TOPICAL BID [facility]; Protocol Last Admin: 01/27/21 08:19 Dose: Not Given Documented by: Quetiapine Fumarate (Quetiapine Fumarate 200 Mg Tablet) 200 mg PO BEDTIME [facility] Last Admin: 01/26/21 20:42 Dose: 200 mg Documented by: Quetiapine Fumarate (Quetiapine Fumarate 50 Mg Tablet) 50 mg PO BID@0830,1330 [facility] Last Admin: 01/27/21 13:20 Dose: 50 mg Documented by: Trazodone HCl (Trazodone Hcl 50 Mg Tablet) 50 mg PO BEDTIME PRN PRN Reason: Insomnia Allergies Allergies Allergy/AdvReac Type Severity Reaction Status Date / Time No Known Allergies Allergy Unverified 11/22/19 17:12 [No Known Allergies*] Assessment & Plan Assessment & Plan (1) Intellectual delay: Status: Chronic Code(s): F81.9 - Developmental disorder of scholastic skills, unspecified (2) Adjustment disorder with mixed disturbance of emotions and conduct: Status: Acute Code(s): F43.25 - Adjustment disorder with mixed disturbance of emotions and conduct Assessment and Plan: Patient is a 40-year-old female, developmentally delayed. She [facility] for increased agitation and hostility towards other house mate which crisis no reports has been ramping up for a few weeks. Patient is poor historian and unable to give much information. At 1st she is cautious on approach but warms up and is friendly and talkative. Thoughts are tangential which is likely baseline; she can be goal directed. She is oriented to self and mostly situation. She knows she takes medications and is resolved to continue doing so. She says she was angry at peer in her household however shares that her mother is helping her understand that this person mind is sick. Crisis note reports there has been a recent medication change, however no other specific trigger. Reportedly she has been physically aggressive, tried scratch ing herself, threatened to hit the business school dean and been crying a lot lately. She has not been attending to ADLs. It is unclear from report whether she has a history of auditory hallucinations or only recently reported auditory hallucinations. 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 It is not clear why but she apparently had a significant decline in function (some say sharp decline, motherr says more gradual) and patient became a [place] phobic, refusing to leave her room and refusing to attend ADLs. She was admitted to [facility] 2016 and was started on med ication, likely Risperdal and apparently did much better, though not back to previous baseline. Patient had other declines but at some point was taken off Risperdal (possibly due to weight gain) and put on Abilify in again did overall well for some period of time. This past summer she was taken off Abilify, it seems because it was not proving itself affective, and started on Seroquel. Whatever problems were occurring when this which was made only seem to worsen over the past months until this admission. Hospital course: No medication changes made except for converting extended release to immediate release Seroquel Patient has remained calm and in good behavioral and impulse control on the unit. Patient is attending to ADLs on the unit with staff help which is baseline. Patient has not exhibited any behaviors that are dangerous to herself or others and has overall been interacting with staff and peers in a calm manner. National Park Tour Guide talked with Mayra supervisor real estate office at patient's half-way and discussed some of patient's history, that her behaviors have gotten worse over the past few mo nths with aggression directed towards a specific peer and towards various staff. Mayra said they found a butter knife under her pillow which was concerning (that said pt has not made any threats to harm others and has never brandished it (is she feeling unsafe?) or the reasons for it understood). From various reports it seems that patient is feeling triggered by a specific peer at the house who will sometimes touch her which she does not like; this is likely at least one of patients triggers. National Park Tour Guide shared that on the unit patient's behaviors have been good and she has demonstrated good impulse control and that it is difficult to know what to treat in certainly work on a medication changes to make. National Park Tour Guide also expressed that if there were to be any medication changes to be made on the unit, there is no way to know if the changes are effective since her behaviors on the unit are fine to begin with. Rather entry writer shared that it seems medication changes will need to be made while she is at the house, in the environment that seems to be triggering in order to see what changes are effective. Mayra agreed and understood this perspective; she shared that the current prescriber has been difficult to coordinate with and has not made many changes and that they are in the process of getting any prescriber whom she hopes will be able to be more involved. National Park Tour Guide also spoke with patient's mother who had a similar report that patient's behaviors have changed. At this time, the etiology for patient's worsening behaviors remains unclear but it's likely multifactorial and a combination of situational stressors and need for more rigorous medication management. Patient is currently on a 12 B. During this admission, Patient's behaviors have been overall calm and appropriate and National Park Tour Guide cannot say that patient is in imminent risk of harm to self or others. While some medications changes can be started during this admission, entry writer cannot testify that patient needs to be on a locked unit at this time and she does not meet criteria for involuntary commitment. Furthermore, it is entry writer's opinion that medication management will ultimately be most effective while patient is dealing, in real-time, with whatever triggers exist in her half-way. National Park Tour Guide discussed this case with team, ARRON Luciano who agrees. Given that patient has done well on Risperdal in the past, patient's guardian agrees with restarting Risperdal now on the unit and then discharging patient back to her half-way; this will give Risperdal some time to work and an opportunity to see if it's helpful in preparation for when patients new prescriber takes over. Contacts: mother, Ally is guardian: [phone] [facility] supervisor real estate office Mayra: [phone] UTI? -Patient's UA came back with some but minimal concern for UTI. However patient was incontinent of urine this morning. Patient is a limited historian and could not answer questions about dysuria/frequency. It given her incontinence and the fact that she has recently had a mood change, entry writer discussed the case with hospitalist who recommended starting Ceftin 250 mg b.i.d. for 5 days, to get another clean-catch and if negative cultures to discontinue. DX: Adjustment disorder with mixed disturbance of emotions and conduct Intellectual disability PLAN: -Patient on Section 12b -START Risperdal 0.5 mg in the morning and 1 mg q.h.s. (patient used to be on 1 mg b.i.d. and reportedly did well; will restart a little bit lower since she is currently on Seroquel the idea being that her outpatient prescriber can assess whether a not Risperdal has been effective and then decide how/iF to taper her off and discontinue Seroquel); entry writer discussed this plan with Ally patient's mother and guardian who agrees with medication regimen -Continue Ceftin 250mg BID for 5 days for UTI (pt refuses repeat UA) -Abbreviated home medications (Formulary does not have exact patient's medications) Lexapro 20 mg (substituting for Celexa 40 mg) Seroquel: -CHANGE to Seroquel IR 50 mg in the morning and 50mg in afternoon since pt seemed overly tired today (patient takes Seroquel ER 50 mg q.a.m. + Seroquel IR 50 mg q.a.m; pharmacy confirmed w/ Dr. Sterling) -Seroquel IR 200 mg at bedtime (patient takes Seroquel ER 200 mg at bedtime; entry writer discussed with pharmacist who both agree it is difficult to say patient would be adequately covered if convert this ER dosing to to IR which would be 100 mg b.i.d. I spent minutes with the patient and/or on the patient floor today, gre ater than?50% of which was spent counseling/coordinating care. Reason for contiued inpatient stay Substantial Risk for: stable for discharge
[2021-01-27 17:59] VITALS: BP 110/70; PULSE 92; TEMP 36.6; O2SAT 97
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
[2021-01-27] MEDS: QUEtiapine Fumarate 200 MG TABLET PO (20:56)
[2021-01-27] MEDS: risperiDONE 1 MG TABLET PO (20:56)
[2021-01-28] MEDS: risperiDONE 0.5 MG TABLET PO (08:34)
[2021-01-28] MEDS: clonazePAM 0.5 MG TABLET PO (08:34)
[2021-01-28] MEDS: Escitalopram Oxalate 20 MG TABLET PO (08:34)
[2021-01-28] MEDS: medroxyPROGESTERone Acetate 5 MG TABLET PO (08:34)
[2021-01-28] MEDS: QUEtiapine Fumarate 50 MG TABLET PO ×2 (08:34→13:30)
== END 2021-01-28 15:10 | disposition home or self-care (01) | DRG 755 ==
LOC: HO.ED 22:54 → HO.PM5 01-23 09:15
PROVIDERS: Admitting Provider Clinical Nurse Specialist Psychiatric/Mental Health, Adult; Emergency Provider Emergency Medicine; Visit Provider Psychiatry & Neurology Psychiatry
DX: F43.25 Adjustment disorder with mixed disturbance of emotions and conduct (principal); F81.9 Developmental disorder of scholastic skills, unspecified; N39.0 Urinary tract infection, site not specified; Z20.822 Contact with and (suspected) exposure to COVID-19; Z79.899 Other long term (current) drug therapy
CPT/HCPCS: 36415; 80048; 80307; 81001; 81025; 85025; 87086; 87088; 87186; 87635; 99285

== ENCOUNTER 2021-04-23 09:26 | Emergency (ER) | payer OTHER, SELFPAY ==
[2021-04-23 09:45] VITALS: PULSE 90; O2SAT 99; BMI 23.1
--- NOTE | 2021-04-23 10:48 | ED_ITS ---
HPI - General Adult General Chief complaint: Psychiatric Symptoms Stated complaint: SECTION 12,CRISIS,HI,CPD ON BOARD FOR SAFETY Time Seen by Provider: 04/23/21 10:46 Source: other (assisted) Mode of arrival: EMS Limitations: altered mental status (limited mental capacity) History of Present Illness HPI narrative: 40-year-old female with intellectual delay, presents from assisted for being uncooperative, not showering, becoming aggressive. This has happened in the past, patient got admitted and got medication changed, and her behaviors resolved. Now her behaviors are worse. Patient has been taking her medications. Related Data Home Medications Medication Instructions Recorded Confirmed citalopram 40 mg tablet 1 tab PO DAILY 01/22/21 04/23/21 clonazepam 0.5 mg tablet 1 tab PO BID 01/22/21 04/23/21 medroxyprogesterone 5 mg tablet 1 tab PO DAILY 01/22/21 04/23/21 acetaminophen 650 mg 650 mg PO Q4H PRN 04/23/21 04/23/21 tablet,extended release bacitracin 500 unit/gram topical 1 appl TOPICAL TID PRN 04/23/21 04/23/21 packet clotrimazole-betamethasone 1 1 appl TOPICAL BID PRN 04/23/21 04/23/21 %-0.05 % topical cream guaifenesin 200 mg/5 mL oral liquid 400 mg PO Q4H PRN 04/23/21 04/23/21 ibuprofen 200 mg tablet 200 mg PO Q4H PRN 04/23/21 04/23/21 multivitamin with minerals-folic 1 tab PO DAILY 04/23/21 04/23/21 acid 200 mcg chewable tablet (Multivitamin Gummies) quetiapine 200 mg tablet,extended 200 mg PO BEDTIME 04/23/21 04/23/21 release 24 hr (Seroquel XR) quetiapine 50 mg tablet (Seroquel) 50 mg PO DAILY 04/23/21 04/23/21 quetiapine 50 mg tablet,extended 50 mg PO DAILY 04/23/21 04/23/21 release 24 hr (Seroquel XR) risperidone 0.5 mg tablet 0.5 mg PO DAILY 04/23/21 04/23/21 risperidone 1 mg tablet (Risperdal) 1 mg PO BEDTIME 04/23/21 04/23/21 Allergies Allergy/AdvReac Type Severity Reaction Status Date / Time No Known Allergies Allergy Verified 04/23/21 14:21 [No Known Allergies*] Review of Systems Review of Systems: Limited due to patient's intellectual delay Constitutional: Constitutional: Denies fever(s) and Denies headache(s) ENT: Denies otalgia, Denies headache(s) and Denies sore throat Cardiovascular: Cardiovascular: Denies chest pain Respiratory: Respiratory: Denies cough Gastrointestinal: Gastrointestinal: Denies abdominal pain, Denies diarrhea, Denies nausea and Denies vomiting Genitourinary: Genitourinary: Reports no additional female genitourinary complaints Musculoskeletal: Musculoskeletal: Denies back pain and Denies myalgias Integumentary/Breasts: Comments: Eczema on face Neurologic: Reports behavioral changes and Denies headache(s) Psychiatric: Psychiatric: Reports behavioral changes [facility] Past Medical History Medical History (Updated 04/23/21 @ 14:20 by JACKLYN Sotomayor) Adjustment disorder with mixed disturbance of emotions and conduct Intellectual delay Social History Social History Household Members: Other Household Members Other:: care home with two housemates. Housing: Other Housing Other:: care home Do you presently have visiting nurse or other home services: Yes Patient Tobacco Use Status: Never used Tobacco e-Cigarette/Vaping Use: Never Used Second Hand Smoke Exposure: No Advance Directives: No Advance Directives Information Provided: No service: No Sexual orientation: Straight/Heterosexual Physical Exam ED Vital Signs: Vital Signs - 24 hr 04/23/21 14:30 Temperature 97.5 F Pulse Rate 88 Respiratory Rate 16 Blood Pressure 101/59 L Pulse Oximetry 99 BMI result Body Mass Index 23.1 Const General: comfortable, no acute distress, alert and awake Nutritional Appearance: well nourished Orientation/consciousness: oriented to person Limitations: other limitations HENMT Face and sinus: Yes normal facial exam Mouth: Normal oral and palatal mucosa present Throat: Yes posterior oropharynx normal Eyes Pupils: Equal, round and reactive pupils present EOM: EOMs intact bilaterally Neck Neck: Yes normal visual inspection, Yes full ROM, Yes no lymphadenopathy, Yes no meningeal signs, Yes trachea midline and Yes supple Resp Effort & Inspection: normal respiratory effort and able to speak in complete sentences Auscultation: clear to auscultation bilaterally, no crackles, no rales, no rhonchi and no wheezes Cardio Rate: regular rate Rhythm: regular rhythm Heart sounds: S1 normal heart sound present and S2 normal heart sound present GI Inspection: Yes normal to inspection Palpation (GI): Soft to palpation, not firm, nontender, no guarding and not rigid Percussion: Yes normal to percussion Auscultation: normal bowel sounds Skin Other: eczema on face Neuro General: oriented to person and no meningeal signs Cranial nerves: Yes Equal, round and reactive pupils present Extrem General: Yes normal to inspection, Yes full ROM and Yes capillary refill normal NIH Stroke Scale Internal: Initial- Upon Arrival Time: 10:45 Level of Consciousness: Alert Level of Consciousness Questions: Answers both questions correctly Level of Consciousness Commands: Performs both tasks correctly Best Gaze: Partial gaze palsy Visual: Partial hemianopia Facial Palsy: Minor paralyis Motor Arm (Right): No drift Motor Arm (Left): Drift Motor Leg (Right): No drift Motor Leg (Left): Drift Limb Ataxia: Absent Sensory: Mild to moderate sensory loss Best Language: No aphasia Dysarthia: Normal Extinction and Inattention: No abnormality Score: 6 Course Course Course Narrative: 40-year-old female with intellectual disability presents for worsening aggressive behavior from assisted. She is COVID negative, has a mild UTI. Will treat for UTI. Awaiting crisis consultation. Patient placed into position observation at this time Medical Decision Making Lab Data Labs: Lab Results 04/23/21 04/23/21 04/23/21 Range/Units 12:07 12:07 12:07 Urine Color YELLOW Urine Appearance HAZY Urine pH 6.5 (5.0-8.0) Ur Specific [place] 1.010 (1.005-1.025) Urine Protein NEG (NEG-TRACE) MG/DL Urine Glucose (UA) NEG (NEG) MG/DL Urine Ketones NEG (NEG) MG/DL Urine Blood NEG (NEG) Urine Nitrite NEG (NEG) Ur Leukocyte Esterase 1+ H (NEG) Urine RBC 0-2 (0) /HPF Urine WBC 10-14 H (0-4) /HPF Ur Squamous Epith Cells 1+ /LPF Urine Bacteria TRACE /LPF Urine Mucus 1+ /LPF Urine Test NEGATIVE (NEGATIVE) COVID-19 (JONATHAN) Negative (Negative) COVID-19 Clin Com See Note Discharge Plan Discharge Clinical Impression: Behavior related to cognitive impairment, UTI (urinary tract infection) Patient Disposition: Still a Patient Prescriptions: No Action citalopram 40 mg tablet 1 tab PO DAILY 0RF clonazepam 0.5 mg tablet 1 tab PO BID 0RF medroxyprogesterone 5 mg tablet 1 tab PO DAILY 0RF quetiapine [Seroquel XR] 200 mg Tablet Extended Release 24 Hr 200 mg PO BEDTIME 0RF acetaminophen 650 mg Tablet Extended Release 650 mg PO Q4H PRN (Reason: MILD PAIN OR FEVER) 0RF ibuprofen 200 mg Tablet 200 mg PO Q4H PRN (Reason: HEADACHE,MUSCLE ACHE, JOINT PAIN, TOOTHACHE) 0RF bacitracin 500 unit/gram Packet 1 appl TOPICAL TID PRN (Reason: OPEN WOUNDS) 0RF guaifenesin 200 mg/5 mL Liquid 400 mg PO Q4H PRN (Reason: Cough) 0RF clotrimazole-betamethasone [Lotrisone] 1-0.05 % Cream 1 appl TOPICAL BID PRN (Reason: FACIAL RASH) 0RF quetiapine [Seroquel XR] 50 mg Tablet Extended Release 24 Hr 50 mg PO DAILY 0RF risperidone 0.5 mg Tablet 0.5 mg PO DAILY 0RF risperidone [Risperdal] 1 mg Tablet 1 mg PO BEDTIME 0RF Multivitamin Gummies 200 mcg Tablet,Chewable 1 tab PO DAILY 0RF quetiapine [Seroquel] 50 mg Tablet 50 mg PO DAILY 0RF
--- NOTE | 2021-04-23 11:31 | PC.NURSE ---
This RN speakin with Mom and guardian, Amara Delaney. States that patient has episodes and that patient's diagnoses are not accurate. She's beyond depression, anxiety Mom is pushing for more diagnoses because her condition goes beyond it Mom questions bipolar. I'm not sure what kind of help she needs. Last saw her daughter last weekend. [phone] cell phone.
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
[2021-04-23 12:19] LABS: Appearance Urine HAZY; Color Urine YELLOW; Glucose Urine UA NEG (NEG); Leukocyte Esterase Urine 1+ (NEG); Nitrite Urine NEG (NEG); PH 6.5 (5.0-8.0); UACC Culture Trigger YES; Urine Blood NEG (NEG); Urine Ketones NEG (NEG); Urine Protein NEG (NEG-TRACE)
[2021-04-23 12:22] LABS: UPreg QC Valid YES; Urine Pregnancy NEGATIVE (NEGATIVE)
[2021-04-23 12:31] LABS: COVID-19 Test Negative (Negative); IDNOW Serial# 9DD0AD1C
[2021-04-23 12:57] LABS: Bacteria Urine TRACE /LPF; Mucus Urine 1+ /LPF; RBC Urine 0-2 /HPF (0); Squamous Epithelial Cell Urine 1+ /LPF
--- NOTE | 2021-04-23 14:02 | PHA.MEDREC ---
MED REC COMPLETE, NO ISSUES Pharmacy Consult ? Medication Reconciliation Pharmacy has completed the medication reconciliation.
[2021-04-23 14:30] VITALS: BP 101/59; PULSE 88; RESP 16; TEMP 36.4; O2SAT 99
--- NOTE | 2021-04-23 15:32 | PC.NURSE ---
doing puzzle. cooperative. drinking. took meds w/o diff
[2021-04-23] MEDS: LORazepam 1 MG TABLET PO (16:57)
--- NOTE | 2021-04-23 17:08 | PC.NURSE ---
Pt accepted po ativan after getting frustrated with POD rules. Mostly lack of personal belongings. Wanted her sweaters, started banging and clawing at the lockers. Was redirectable to room, sat to talk with this RN. Calming and watching TV.
--- NOTE | 2021-04-23 17:44 | PC.NURSE ---
calmer. watching TV. offered snacks but declined.
[2021-04-23] MEDS: clonazePAM 0.5 MG TABLET PO (21:17)
[2021-04-23] MEDS: risperiDONE 1 MG TABLET PO (21:17)
[2021-04-23] MEDS: QUEtiapine Fumarate 100 MG TABLET PO (21:17)
[2021-04-23] MEDS: QUEtiapine Fumarate 25 MG TABLET PO (21:17)
[2021-04-24 01:29] VITALS: BP 102/60; PULSE 73; RESP 16; TEMP 36.5; O2SAT 99
--- NOTE | 2021-04-24 02:02 | MHC.CARE ---
Pt was seen by BULL and cleared. pt will remain the night and CARE team can coordinate her d/c in the morning
--- NOTE | 2021-04-24 06:21 | PC.NURSE ---
Patient slept through the night, no distress observed/reported, behavior appropriate and non concerning at this time, medication compliant, Patient + for UTI, Ceftin 250 mg BID, patient was screened by [facility] overnight, patient engaged, disposition d/c back to care home in the morning, care team will coordinate the d/c, VSS, will continue to monitor.
[2021-04-24] MEDS: risperiDONE 0.5 MG TABLET PO (07:18)
[2021-04-24] MEDS: QUEtiapine Fumarate 25 MG TABLET PO (07:18)
[2021-04-24] MEDS: QUEtiapine Fumarate 50 MG TABLET PO (07:18)
[2021-04-24] MEDS: Multivitamin TABLET 1 TAB PO (07:19)
[2021-04-24] MEDS: clonazePAM 0.5 MG TABLET PO (07:19)
[2021-04-24] MEDS: QUEtiapine Fumarate 100 MG TABLET PO (07:19)
[2021-04-24] MEDS: Escitalopram Oxalate 20 MG TABLET PO (07:19)
[2021-04-24 07:25] VITALS: BP 96/68; PULSE 83; RESP 12; TEMP 36.1; O2SAT 100
--- NOTE | 2021-04-24 07:56 | PC.NURSE ---
i informed the staff that i gave her all her meds except for provera
== END 2021-04-24 08:00 | disposition other institution (70) ==
PROVIDERS: Emergency Provider Emergency Medicine; PCP Internal Medicine
DX: F43.25 Adjustment disorder with mixed disturbance of emotions and conduct (principal); N39.0 Urinary tract infection, site not specified; F81.9 Developmental disorder of scholastic skills, unspecified; Z20.822 Contact with and (suspected) exposure to COVID-19; Z79.899 Other long term (current) drug therapy
CPT/HCPCS: 81001; 81025; 87086; 87635; 99284